=== PATIENT | male | born 1940 | race Caucasian/White ===

== ENCOUNTER → 2019-08-20 | Outpatient (CLI) | payer MEDICARE, SELFPAY | PROVIDERS: PCP Nurse Practitioner; Visit Provider Nurse Practitioner | DX: N18.3 Chronic kidney disease, stage 3 (moderate) (principal); N28.1 Cyst of kidney, acquired | CPT/HCPCS: 93976; 76775 ==

== ENCOUNTER → 2020-11-09 08:45 | Outpatient (CLI) | payer MEDICARE, SELFPAY ==
--- NOTE | ~2020-11-09 | XR_ITS ---
EXAMINATION: XR chest 2V DATE: 11/09/2020 09:04 INDICATION: Shortness of breath, COVID 19 TECHNIQUE: PA and lateral views of the chest are obtained. COMPARISON: None available FINDINGS: There are minimal airspace opacities of the lung bases. There is no pleural effusion or pne umothorax. The cardiomediastinal silhouette is normal. There is mild thoracic spondylosis. IMPRESSION: 1. Minimal bibasilar airspace opacities, consistent with atelectasis versus pneumonia. Reviewed, dictated and finalized at location A. SCIENCE TEACHER IMPRESSION: 1. Minimal bibasilar airspace opacities, consistent with atelectasis versus pne umonia.
== END ==
PROVIDERS: PCP Internal Medicine; Visit Provider Internal Medicine
DX: U07.1 COVID-19 (principal); R91.8 Other nonspecific abnormal finding of lung field
CPT/HCPCS: 71046

== ENCOUNTER 2021-02-27 09:34 | Outpatient (CLI) | payer MEDICARE, SELFPAY | END 2021-02-27 09:35 | disposition home or self-care (01) | PROVIDERS: PCP Internal Medicine | DX: Z23 Encounter for immunization (principal) | CPT/HCPCS: 0001A; 91300 ==

== ENCOUNTER 2021-03-20 09:18 | Outpatient (CLI) | payer MEDICARE, SELFPAY | END 2021-03-20 09:19 | disposition home or self-care (01) | LOC: ANHCOVIDVC 09:19 | PROVIDERS: PCP Internal Medicine | DX: Z23 Encounter for immunization (principal) | CPT/HCPCS: 0002A; 91300 ==

== ENCOUNTER 2021-08-09 08:09 | Outpatient (CLI) | payer MEDICARE, SELFPAY ==
--- NOTE | 2021-08-09 08:21 | ECHO_ITS ---
Patient Info Name: Braeden Youngblood Age: 81 years : 1940 Gender: Male Ht: 69 in Wt: 185 lbs BSA: 2.04 m2 HR: 69 bpm BP: 182 / 101 mmHg Heart Rhythm: Sinus Rhythm Technical Quality: Good Exam Date: 08/09/2021 8:51 AM Exam Location: [facility] Patient Status: Outpatient Admit Date: 08/09/2021 Staff Ordering Physician: Aminta Lincoln NP Acoustical Material Worker: Thania Majano RDCS Attending Provider: Aminta Lincoln NP Referring Physician: Latonia MOJICA; Exam Type: CA echo doppler color flow Study Info Indications - NONRHEUMATIC MITRAL VALVE INSUFFICIENCY Complete two-dimensional, color flow and Doppler transthoracic echocardiogram is performed. Summary 1. Complete two-dimensional, color flow and Doppler transthoracic echocardiogram is performed. 2. Left ventricular chamber dimension is normal. 3. Left ventricular systolic function is normal, estimated at 65-70%. 4. There is moderately increased left ventricular wall thickness. 5. The left ventricular diastolic function is grade I diastolic dysfunction. 6. Left atrial chamber dimension is moderately enlarged. 7. Right atrial chamber dimension is mildly enlarged. 8. There is mild aortic valve stenosis with a peak velocity of 239 cm/s, mean gradient of 10 mmHg, and aortic valve area of 1.8 cm2. 9. There is moderate to severe aortic valve regurgitation. 10. There is severe aortic valve calcification. 11. There is mild to moderate mitral valve regurgitation. 12. There is mild mitral valve stenosis. 13. There is mild tricuspid valve regurgitation. 14. Mild pulmonary hypertension, estimated pulmonary arterial systolic pressure is 36 mmHg. 15. There is a 0.5 x 0.6 mm slightly mobile calcifications seen in the left ventricular outflow tract near the base of anterior leaflet of the mitral valve. 16. Recommend KAMARI if this has not previously been delineated /defined. Left Ventricle Left ventricular chamber dimension is normal. Left ventricular systolic function is normal, estimated at 65-70%. There is moderately increased left ventricular wall thickness. The left ventricular diastolic function is grade I diastolic dysfunction. Right Ventricle Right ventricular chamber dimension is normal. Right ventricular systolic function is normal. Left Atria Left atrial chamber dimension is moderately enlarged. Right Atria Right atrial chamber dimension is mildly enlarged. Atrial Septum Intact interatrial septum visualized by color flow imaging. Aortic Valve The aortic valve is trileaflet. There is mild aortic valve stenosis with a peak velocity of 239 cm/s, mean gradient of 10 mmHg, and aortic valve area of 1.8 cm2. There is moderate to severe aortic valve regurgitation. There is severe aortic valve calcification. Pulmonic Valve The pulmonic valve is normal. There is no pulmonic valve stenosis. There is trace pulmonic regurgitation. Mitral Valve The mitral valve has thickened leaflets. There is mild mitral valve stenosis. There is mild to moderate mitral valve regurgitation. Tricuspid Valve The tricuspid valve leaflets are normal. There is no significant tricuspid valve stenosis. There is mild tricuspid valve regurgitation. Mild pulmonary hypertension, estimated pulmonary arterial systolic pressure is 36 mmHg. Other Findings There is a 0.5 x 0.6 mm slightly mobile calcifications seen in the left ventricular outflow tract near the base of anterior leaflet of the mitral valve. Recommend KAMARI if this
== END 2021-08-09 08:10 | disposition home or self-care (01) ==
PROVIDERS: PCP Internal Medicine; Visit Provider Nurse Practitioner
DX: I34.0 Nonrheumatic mitral (valve) insufficiency (principal); I27.20 Pulmonary hypertension, unspecified; I36.1 Nonrheumatic tricuspid (valve) insufficiency
CPT/HCPCS: 93306